=== PATIENT | male | born 1975 | race Caucasian/White ===

== ENCOUNTER → 2019-11-16 | Emergency (ER) | payer MEDICAID ==
[~2019-11-16] VITALS: Ht 167.6 cm; Wt 77.3 kg
[2019-11-16 20:39] VITALS: BP 104/65
== END | disposition home or self-care (01) ==
LOC: EMS 18:25
DX: R50.9 Fever, unspecified (principal); Z53.21 Procedure and treatment not carried out due to patient leaving prior to being seen by health care provider